=== PATIENT | male | born 1990 | race Caucasian/White ===

== ENCOUNTER 2016-12-30 14:32 | Emergency (ER) | payer OTHER ==
[2016-12-30 15:01] VITALS: BP 107/63; PULSE 77; RESP 18; TEMP 98.2; O2SAT 97
--- NOTE | 2016-12-30 15:11 | C.PDOC ---
History Of Present Illness 26 y/o male presents to the ED with complains of some itching to left arm which onset last night, though notes being able to sleep throughout the night. Pt states there was an outbreak of scabies at his work 2 weeks ago and wanted evaluation of itching arm. No rash. Pt denies fever, known allergens, swelling or any other complaints. NO throat, tongue or lip swelling. Time Seen by Provider: 12/30/16 15:09 Chief Complaint (Nursing): Abnormal Skin Integrity History Per: Patient History/Exam Limitations: no limitations Onset/Duration Of Symptoms: Hrs Current Symptoms Are (Timing): Still Present Quality Of Symptoms: Itching Severity: Mild Recent travel outside of the [place]: No Past Medical History Reviewed: Historical Data, Nursing Documentation, Vital Signs Vital Signs: Last Vital Signs Temp 98.2 F 12/30/16 15:00 Pulse 77 12/30/16 15:00 Resp 18 12/30/16 15:00 BP 107/63 12/30/16 15:00 Pulse Ox 97 12/30/16 15:46 - Medical History PMH: Asthma Family History: States: Unknown Family Hx - Social History Hx Alcohol Use: Yes Hx Substance Use: No Review Of Systems Except As Marked, All Systems Reviewed And Found Negative. Constitutional: Negative for: Fever, Chills Respiratory: Negative for: Shortness of Breath Skin: Positive for: Other (upper arm itching) Physical Exam - Physical Exam Appears: Non-toxic, No Acute Distress Skin: Warm, Dry, No Rash, Other (No excoriations. No rash. No erythema noted. ) Head: Atraumatic, Normacephalic Eye(s): bilateral: Normal Inspection, EOMI Nose: Normal Oral Mucosa: Moist Throat: Normal, No Erythema, No Exudate Neck: Normal ROM, Supple Chest: Symmetrical Cardiovascular: Rhythm Regular Respiratory: Normal Breath Sounds Extremity: Normal ROM, No Swelling Extremity: Bilateral: Atraumatic Neurological/Psych: Oriented x3 ED Course And Treatment O2 Sat by Pulse Oximetry: 97 (on room air) Pulse Ox Interpretation: Normal Progress Note: Discussed treatment plan with patient, instructed to return to ED if symptoms worsen in 2-3 days. Case discussed with Dr Naidu, agreed upon plan and discharge. Disposition - Disposition Disposition: HOME/ ROUTINE Disposition Time: 15:10 Condition: STABLE Additional Instructions: Follow up with primary medical doctor in 1-3 days without fail for further evaluation. Take medications as prescribed. Return to the emergency department at any time if symptoms persist or worsen. 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 - Scribe Statement The provider has reviewed the documentation as recorded by the Scribryder capps All medical record entries made by the Doreenibryder were at my direction and personally dictated by me. I have reviewed the chart and agree that the record accurately reflects my personal performance of the history, physical exam, medical decision making, and the department course for this patient. I have also personally directed, reviewed, and agree with the discharge instructions and disposition.
== END 2016-12-30 15:16 | disposition home or self-care (01) ==
LOC: C.ER 14:32
DX: B86 Scabies (principal)